=== PATIENT | male | born 1995 | race African-American/Black ===

== ENCOUNTER 2018-07-27 20:44 | Emergency (ER) | payer OTHER ==
[2018-07-27 20:55] VITALS: TEMP 98.4
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
[2018-07-27 22:13] VITALS: BP 127/63; PULSE 66; RESP 16
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
== END 2018-07-27 22:37 | disposition home or self-care (01) ==
LOC: EC 20:44
DX: S09.90XA Unspecified injury of head, initial encounter (principal); F17.200 Nicotine dependence, unspecified, uncomplicated; Z53.29 Procedure and treatment not carried out because of patient's decision for other reasons; Z88.6 Allergy status to analgesic agent; Z91.013 Allergy to seafood; V49.50XA Passenger injured in collision with unspecified motor vehicles in traffic accident, initial encounter; Y92.410 Unspecified street and highway as the place of occurrence of the external cause
CPT/HCPCS: 70450; 72125; 99284